=== PATIENT | male | born 1975 | race Hispanic/Latino ===

== ENCOUNTER 2017-05-20 14:29 | Emergency (ER) | payer SELFPAY ==
[2017-05-20] MEDS ORDERED: HYDROcodone/Acetaminophen 5/325 mg Tablet ONE (14:49)
[2017-05-20] MEDS ORDERED: Adacel (T-DAP) 0.5 ML VIAL ONE (14:49)
[2017-05-20] MEDS ORDERED: Lidocaine 1% PF 5 ML VIAL ONE (14:50)
[2017-05-20] MEDS ORDERED: ceFAZolin Sodium 1 GM VIAL ONE (14:50)
[2017-05-20] MEDS ORDERED: Lidocaine 1% w/Epinephrine 1:200K 30 ML VIAL ONE (14:50)
[2017-05-20] MEDS ORDERED: Bupivacaine 0.25% 10 ML VIAL ONE (14:50)
--- NOTE | 2017-05-20 14:50 | RAD ---
LEFT HAND THREE VIEWS: History: Left hand injury. FINDINGS/IMPRESSION: Joint spaces are preserved. Lacerations appear along the dorsomedial aspect of the hand. Diffuse sof t tissue swelling is suspected with scattered radiopaque liquid over the skin. No acute fracture, di slocation, or radiopaque embedded foreign bodies are reliably demonstrated. POS: [facility]
== END 2017-05-20 16:23 | disposition home or self-care (01) ==
LOC: ERS 14:29
DX: S61.412A Laceration without foreign body of left hand, initial encounter (principal); S61.217A Laceration without foreign body of left little finger without damage to nail, initial encounter; W22.8XXA Striking against or struck by other objects, initial encounter; Y92.69 Other specified industrial and construction area as the place of occurrence of the external cause; Y99.0 Civilian activity done for income or pay
CPT/HCPCS: 12002; 90471; 90715; 96372; J0690; J2001; S0020